=== PATIENT | female | born 2000 | race Caucasian/White ===

== ENCOUNTER 2023-06-26 10:44 | Emergency (ER) | payer MEDICAID ==
[~2023-06-26] VITALS: Ht 157.5 cm; Wt 74.5 kg
[~2023-06-26 10:44] MED LIST: CEPHALEXIN500 M1 PO; IBU800 M1 PO; PEPCID40 MG PO; TYLENOL 500MG500 MG PO
[2023-06-26 10:59] VITALS: TEMP 98.4
[2023-06-26 11:30] VITALS: BP 125/96; PULSE 88
[2023-06-26 11:36] LABS: BASO # 0.1 K/mm3 (0.0-0.2); BASO % 0.6 % (0.0-2.0); EOS # 0.3 K/mm3 (0.0-0.7); EOS % 1.5 % (0.0-4.0); GRAN # 12.6 K/mm3 (1.4-6.5); GRAN % 73.6 % (42.2-75.2); HEMOGLOBIN 10.8 g/dl (12.5-16.0); LYMPH # 3.2 K/mm3 (1.2-3.4); LYMPH % 18.5 % (20.0-51.0); MEAN CELL VOLUME 82 fl (80.0-100.0); MEAN CORPUSCULAR HEMOGLOBIN 26 pg (27-31); MEAN CORPUSCULAR HGB CONC 32 g/dl (33.0-37.0); MEAN PLATELET VOLUME 9.9 fl (7.4-10.4); MONO # 0.9 K/mm3 (0.1-0.6); MONO % 5.2 % (1.7-9.3); PLATELET COUNT 360 K/mm3 (130-400); RED BLOOD COUNT 4.13 M/mm3 (4.10-5.30); REDCELL DISTRIBUTION WIDTH-CV 17.1 % (11.5-14.5)
[2023-06-26 11:40] LABS: HEMATOCRIT 33.7 % (37.0-47.0)
[2023-06-26 11:48] LABS: ALBUMIN 3.3 gm/dL (3.5-5.0); BILIRUBIN,TOTAL 0.5 mg/dL (0.2-1.2); CALCIUM 8.6 mg/dL (8.4-10.2); CREATININE, serum 0.59 mg/dL (0.57-1.11); POTASSIUM 4.1 mmol/L (3.5-4.5); TOTAL PROTEIN 7.4 gm/dL (6.2-8.1)
[2023-06-26] MEDS ORDERED: fentaNYL 50 MCG/ML 2 ML VIAL ONE ×2 (11:49→12:26)
[2023-06-26] MEDS ORDERED: Clindamycin 0 ML IV ONE (11:52)
[2023-06-26] MEDS ORDERED: NS 1,000 ML IV ONE (12:15)
[2023-06-26] MEDS ORDERED: Ondansetron 4 MG/2 ML VIAL ONE (12:18)
[2023-06-26] MEDS ORDERED: Ketorolac 30 MG/ML VIAL ONE (12:18)
[2023-06-26] MEDS ORDERED: Morphine 4 MG/ML VIAL IV ONE (12:30)
[2023-06-26] MEDS ORDERED: IBU600 MG PO (16:42)
== END 2023-06-26 13:10 | disposition other institution (70) ==
LOC: COL.ER 10:44
PROVIDERS: Nurse Practitioner
DX: O03.9 Complete or unspecified spontaneous abortion without complication (principal); N39.0 Urinary tract infection, site not specified
CPT/HCPCS: J0737; J1885; J2270; J2405; J2704; J3010; J7030

== ENCOUNTER 2023-06-26 11:46 | Day surgery (SDC) | payer MEDICAID ==
[2023-06-26] MEDS ORDERED: GENTAMICIN IV ONE (12:00)
[2023-06-26] MEDS ORDERED: CLINDAMYCIN 900 MG/50 ML IV ONE (12:00)
[2023-06-26] MEDS ORDERED: Silver Nitrate Applicator 1 Stick TP ONE (12:15)
[2023-06-26 12:30] VITALS: BP 103/48; PULSE 86; TEMP 97.4
[2023-06-26] MEDS ORDERED: droPERidol 2.5 MG/ML 2 ML VIAL IV PRN (12:30)
[2023-06-26] MEDS ORDERED: HYDROmorphone 2 MG/1 ML VIAL IV PRN (12:30)
[2023-06-26] MEDS ORDERED: fentaNYL 50 MCG/ML 2 ML VIAL IV PRN (12:30)
[2023-06-26 12:45] VITALS: BP 98/47; PULSE 72
[2023-06-26 13:00] VITALS: BP 96/59; PULSE 77
[2023-06-26] MEDS ORDERED: Cephalexin 500 MG CAP PO SCH (13:00)
[2023-06-26 13:15] VITALS: BP 98/49; PULSE 70
[2023-06-26 13:45] VITALS: BP 104/87; PULSE 78
[2023-06-26] MEDS ORDERED: LR 1,000 ML IV SCH (13:45)
[2023-06-26] MEDS ORDERED: Morphine 4 MG/ML VIAL IV PRN (13:45)
[2023-06-26] MEDS ORDERED: oxyCODONE 5 MG TAB PO PRN (13:45)
[2023-06-26] MEDS ORDERED: Naloxone 0.4 MG/ML VIAL IV PRN (13:45)
[2023-06-26] MEDS ORDERED: Ondansetron 4 MG/2 ML VIAL IV PRN (13:45)
[2023-06-26] MEDS ORDERED: Acetaminophen 500 MG TAB PO SCH (13:45)
--- NOTE | 2023-06-26 14:00 | NUR ---
Call place to [facility] as unsure if case needed reported. Patient had come to the ER with a miscarriage. Baby was partially delivered in the ER. No signs of life per provider. Per [facility] due to size of fetus it would not be a canidate and unsure time of . Case number was recieved [id number]
[2023-06-26 14:15] VITALS: BP 96/60; PULSE 80
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
[2023-06-26] MEDS ORDERED: IBU600 MG PO (16:42)
[2023-06-26] MEDS ORDERED: Oxytocin 10 UNITS/ML VIAL IM ONE (17:15)
[2023-06-26] MEDS ORDERED: Ibuprofen 600 MG TAB PO SCH (18:33)
[2023-06-26] MEDS ORDERED: Docusate Sodium 100 MG CAP PO SCH (21:00)
== END 2023-06-26 18:35 | disposition home or self-care (01) ==
LOC: SDCO 11:46 → OB 15:37 → LDR 15:48 → SDCO 18:35
DX: O42.912 Preterm premature rupture of membranes, unspecified as to length of time between rupture and onset of labor, second trimester (principal); O32.1XX0 Maternal care for breech presentation, not applicable or unspecified; O36.4XX0 Maternal care for intrauterine death, not applicable or unspecified; G40.909 Epilepsy, unspecified, not intractable, without status epilepticus; Z3A.18 18 weeks gestation of pregnancy; Z87.448 Personal history of other diseases of urinary system
CPT/HCPCS: OP; J0737; J1580; J2590